=== PATIENT | male | born 1985 | race Caucasian/White ===

== ENCOUNTER 2016-12-29 10:40 | Inpatient (IN) | payer OTHER ==
[~2016-12-29] VITALS: Ht 175.2 cm; Wt 92.5 kg
--- NOTE | ~2016-12-29 | ST ---
[place], [place] EXERCISE STRESS TEST REPORT NAME: TRICIA BAR UNIT #: [id number] ROOM: 529 DOCTOR: MONA MACIEL MD BIRTHDATE: [birth year] DOS: 12/30/2016 EXERCISE STRESS TEST REPORT INDICATIONS: Chest pain. The patient has diabetes and also smokes. PERFORMANCE PROTOCOL: Agustin protocol followed. Duration of the exercise was 12 minutes 50 seconds. Maximum heart rate achieved was 85%. Stage reached was stage 3. Total METS achieved were 10 METS. Pre-exercise heart rate was 62, blood pressure 104/78. Peak exercise heart rate was 131 and blood pressure is 140/74. EKG RESPONSE: Baseline EKG, normal sinus rhythm. Stress EKG, no ST changes noted. CLINICAL RESPONSE: The patient did well. No chest pain or shortness of breath. INTERPRETATION: 1. Negative exercise stress test. 2. Wait for Cardiolite images for full report. MONA MACIEL MD CM:STRESS:EXERCISE STRESS TEST REPORT [id number] MONA MACIEL MD
[~2016-12-29 10:40] MED LIST: 70/30 INSULIN SC; AMOXICILLIN500 MG PO; AMOXIL500 MG PO; ASPIRIN81 M1 PO; AUGMENTIN 875 M1 TAB PO; CEPHALEXIN500 MG PO; CLARITIN10 MG PO; CLEOCIN HCL300 MG PO; FLONASE 0.05% 121 EA NAS; GLUCOPHAGE1000 MG PO; HUMALOG100 U/ML SC; IBU800 MG PO; LANTUS100 U/ML SC; LEVEMIR100 U/ML SC; MOTRIN800 MG PO; NAPROSYN500 MG PO; NORCO 325 MG-51 TAB PO; NOVOLIN 70/30 710 ML SC; PERCOCET 325 MG1 TA5 PO; PRAVACHOL40 MG PO; PRILOSEC20 MG PO; ZITHROMAX250 MG PO
[2016-12-29 10:46] VITALS: BP 129/77
[2016-12-29] MEDS ORDERED: LORATADINE-D 11 EACH PO (10:46)
[2016-12-29] MEDS ORDERED: BENZONATATE100 M1 PO (10:46)
[2016-12-29] MEDS ORDERED: PRAVASTATIN SOD20 MG PO (10:47)
[2016-12-29] MEDS ORDERED: OMEPRAZOLE D/R20 MG PO (10:47)
[2016-12-29] MEDS ORDERED: LISINOPRIL5 MG PO (10:47)
[2016-12-29] MEDS ORDERED: CITALOPRAM HYDR40 MG PO (10:47)
[2016-12-29] MEDS ORDERED: ASPIR LOW81 MG PO (10:47)
[2016-12-29] MEDS ORDERED: TRAZODONE50 MG PO (10:47)
[2016-12-29] MEDS ORDERED: VENLAFAXINE HYD75 M3 PO (10:48)
[2016-12-29] MEDS ORDERED: LANTUS SOLOS100 U/M1 SC (10:48)
[2016-12-29 11:10] LABS: BASO # 0.1 10*3/uL (0.0-0.1); BASO % 0.6 % (0.0-1.0); EOS # 0.3 10*3/uL (0.0-0.4); EOS % 3.4 % (1.0-4.0); HEMATOCRIT 41.7 % (42.0-52.0); HEMOGLOBIN 14.1 g/dl (14.0-18.0); LYMPH # 1.9 10*3/uL (1.3-4.4); LYMPH % 21.9 % (27.0-41.0); MEAN CELL VOLUME 88.3 fl (80.0-94.0); MEAN CORPUSCULAR HGB 29.9 pg (27.0-31.0); MEAN CORPUSCULAR HGB CONC 33.8 g/dl (33.0-37.0); MEAN PLATELET VOLUME 9.3 fl (9.6-12.3); MONO # 0.7 10*3/uL (0.1-1.0); MONO % 7.6 % (3.0-9.0); NEUT # 5.7 10*3/uL (2.3-7.9); NEUT % 66.2 % (47.0-73.0); PLATELET COUNT AUTOMATED 251 10*3/uL (130-400); RED BLOOD COUNT 4.72 10*6/uL (4.50-5.90); RED CELL DISTRI WIDTH 12.4 % (0-14.5); WHITE BLOOD COUNT 8.6 10*3/uL (4.8-10.8)
[2016-12-29 11:15] VITALS: BP 128/71
[2016-12-29 11:19] LABS: PROTHROMBIN TIME 10.7 SECONDS (9.0-12.4)
[2016-12-29 11:25] LABS: ALBUMIN 3.4 gm/dl (3.1-4.5); ALKALINE PHOSPHATASE 92 U/L (45-117); BILIRUBIN, TOTAL 0.7 mg/dl (0.2-1.0); BUN 13 mg/dl (7-24); CARBON DIOXIDE 25 mmol/L (21-32); CHLORIDE 102 mmol/L (98-107); CKMB 2.8 ng/ml (0.5-3.6); CPK 305 U/L (39-308); EST GLOM FILT AFRICAN AMERICAN > 60 ml/min; GLUCOSE 336 mg/dL (65-99); POTASSIUM 4.1 mmol/L (3.5-5.1); SGOT/AST 23 IU/L (3-35); SGPT/ALT 30 U/L (12-78); SODIUM 140 mmol/L (136-145); TOTAL PROTEIN 6.8 gm/dL (6.4-8.2)
[2016-12-29 11:26] VITALS: BP 138/79
[2016-12-29 11:37] LABS: C-REACTIVE PROTEIN < 0.29 MG/DL (0-0.3); TROPONIN I < 0.015 ng/ml (<0.045)
[2016-12-29 13:00] VITALS: BP 132/69
[2016-12-29 13:07] LABS: LA>2 REFLEX 2 HR DRAW NOW
[2016-12-29] MEDS ORDERED: EFFEXOR XR75 M1 PO (13:15)
[2016-12-29 13:32] LABS: HEMOGLOBIN A1c 8.3 % (4.8-5.6)
[2016-12-29 13:41] LABS: LA>2 RFLX FOLLOW UP AT 2 HRS 2.7 mmol/L (0.4-2.0)
[2016-12-29] MEDS ORDERED: HUMALOG100 U/ML SC (13:52)
[2016-12-29 15:19] LABS: LA>2 REFLEX 4 HR DRAW NOW
[2016-12-29 16:00] VITALS: BP 136/79
[2016-12-29 17:17] LABS: CKMB 2.1 ng/ml (0.5-3.6); CPK 240 U/L (39-308); LDH 147 U/L (87-241)
[2016-12-29 17:18] LABS: TROPONIN I < 0.015 ng/ml (<0.045)
[2016-12-29 20:00] VITALS: BP 154/71
[2016-12-29 23:30] LABS: CKMB 1.9 ng/ml (0.5-3.6); CPK 204 U/L (39-308); LDH 146 U/L (87-241)
[2016-12-29 23:31] LABS: TROPONIN I < 0.015 ng/ml (<0.045)
[2016-12-30] VITALS: BP 118/72
[2016-12-30 06:19] LABS: CHOLESTEROL 135 mg/dL (<200); HDL CHOLESTEROL 65 mg/dl (40-60); LDL CHOLESTEROL 21 mg/dL (9-159); TRIGLYCERIDES 243 mg/dl (<150); VLDL CHOLESTEROL 49 mg/dL (6-40)
[2016-12-30 08:00] VITALS: BP 116/65
[2016-12-30 08:49] LABS: BILIRUBIN NEGATIVE (NEGATIVE); BLOOD NEGATIVE (NEGATIVE); CLARITY CLEAR (CLEAR); COLOR YELLOW (YELLOW); GLUCOSE 1+ (NEGATIVE); KETONE NEGATIVE (NEGATIVE); LEUKO ESTERASE NEGATIVE (NEGATIVE); NITRITE NEGATIVE (NEGATIVE); PH 5.5 (5.0-9.0); PROTEIN NEGATIVE (NEGATIVE); UROBILINOGEN 0.2 E.U./dl (0.2-1.0)
[2016-12-30 09:57] LABS: BACTERIA TRACE; MUCOUS 2+; RBC 0-2 rbc/hpf (0-2)
[2016-12-30 12:00] VITALS: BP 114/66
[2016-12-30 16:00] VITALS: BP 113/68
[2016-12-30 20:00] VITALS: BP 129/76
[2016-12-31] VITALS: BP 121/60
[2016-12-31 08:00] VITALS: BP 100/61
[2016-12-31 12:00] VITALS: BP 140/68
[2016-12-31] MEDS ORDERED: LEVEMIR10 ML SQ (16:10)
== END 2016-12-31 16:29 | disposition home or self-care (01) | DRG 313 ==
LOC: ED 10:40 → EDHOLD 12:08 → 5E 12:16
PROVIDERS: Emergency Medicine; Internal Medicine
DX: R07.9 Chest pain, unspecified (principal); E87.2 Acidosis; E11.649 Type 2 diabetes mellitus with hypoglycemia without coma; E11.65 Type 2 diabetes mellitus with hyperglycemia; E78.1 Pure hyperglyceridemia; F17.210 Nicotine dependence, cigarettes, uncomplicated; Z82.49 Family history of ischemic heart disease and other diseases of the circulatory system; Z80.9 Family history of malignant neoplasm, unspecified; Z79.4 Long term (current) use of insulin; Z79.899 Other long term (current) drug therapy

== ENCOUNTER 2017-01-27 11:54 | Emergency (ER) | payer OTHER ==
[~2017-01-27] VITALS: Ht 175.2 cm; Wt 97.5 kg
[~2017-01-27 11:54] MED LIST changes: +ASPIR LOW81 MG PO; +BENZONATATE100 M1 PO; +CITALOPRAM HYDR40 MG PO; +EFFEXOR XR75 M1 PO; +LANTUS SOLOS100 U/M1 SC; +LEVEMIR10 ML SQ; +LISINOPRIL5 MG PO; +LORATADINE-D 11 EACH PO; +OMEPRAZOLE D/R20 MG PO; +PRAVASTATIN SOD20 MG PO; +TRAZODONE50 MG PO; +VENLAFAXINE HYD75 M3 PO
[2017-01-27 12:11] VITALS: BP 134/69
[2017-01-27] MEDS ORDERED: ASPIR LOW81 MG PO (12:13)
[2017-01-27] MEDS ORDERED: PRAVASTATIN SOD20 MG PO (12:13)
[2017-01-27] MEDS ORDERED: LISINOPRIL5 MG PO (12:13)
[2017-01-27 12:50] LABS: BASO # 0.1 10*3/uL (0.0-0.1); BASO % 0.4 % (0.0-1.0); EOS # 0.1 10*3/uL (0.0-0.4); EOS % 1.1 % (1.0-4.0); HEMATOCRIT 40.5 % (42.0-52.0); HEMOGLOBIN 13.8 g/dl (14.0-18.0); IG # 0.1 10*3/uL (0.0-0.1); LYMPH # 1.8 10*3/uL (1.3-4.4); LYMPH % 14.6 % (27.0-41.0); MEAN CELL VOLUME 87.1 fl (80.0-94.0); MEAN CORPUSCULAR HGB 29.7 pg (27.0-31.0); MEAN CORPUSCULAR HGB CONC 34.1 g/dl (33.0-37.0); MONO # 0.6 10*3/uL (0.1-1.0); MONO % 4.9 % (3.0-9.0); NEUT # 9.7 10*3/uL (2.3-7.9); NEUT % 78.5 % (47.0-73.0); PLATELET COUNT AUTOMATED 217 10*3/uL (130-400); RED BLOOD COUNT 4.65 10*6/uL (4.50-5.90); RED CELL DISTRI WIDTH 12.1 % (0-14.5); WHITE BLOOD COUNT 12.4 10*3/uL (4.8-10.8)
[2017-01-27 13:07] LABS: ALBUMIN 3.4 gm/dl (3.1-4.5); ALKALINE PHOSPHATASE 93 U/L (45-117); BILIRUBIN, TOTAL 0.3 mg/dl (0.2-1.0); BUN 16 mg/dl (7-24); CARBON DIOXIDE 28 mmol/L (21-32); CHLORIDE 102 mmol/L (98-107); EST GLOM FILT AFRICAN AMERICAN > 60 ml/min; GLUCOSE 189 mg/dL (65-99); POTASSIUM 4.1 mmol/L (3.5-5.1); SGOT/AST 17 IU/L (3-35); SGPT/ALT 22 U/L (12-78); SODIUM 140 mmol/L (136-145); TOTAL PROTEIN 6.7 gm/dL (6.4-8.2)
[2017-01-27] MEDS ORDERED: ZOFRAN ODT4 MG SL (13:44)
== END 2017-01-27 14:28 | disposition home or self-care (01) ==
LOC: ED 11:54
PROVIDERS: Registered Nurse
DX: K52.9 Noninfective gastroenteritis and colitis, unspecified (principal); F17.200 Nicotine dependence, unspecified, uncomplicated; Z79.82 Long term (current) use of aspirin; Z79.899 Other long term (current) drug therapy

== ENCOUNTER 2017-11-29 09:59 | Emergency (ER) | payer OTHER ==
[~2017-11-29] VITALS: Ht 175.2 cm; Wt 106.6 kg
[~2017-11-29 09:59] MED LIST changes: +ZOFRAN ODT4 MG SL
[2017-11-29 10:28] LABS: BASO # 0.1 10*3/uL (0.0-0.1); BASO % 0.6 % (0.0-1.0); EOS # 0.3 10*3/uL (0.0-0.4); EOS % 3.2 % (1.0-4.0); HEMATOCRIT 40.9 % (42.0-52.0); LYMPH # 1.6 10*3/uL (1.3-4.4); LYMPH % 15.9 % (27.0-41.0); MEAN CELL VOLUME 85.7 fl (80.0-94.0); MEAN CORPUSCULAR HGB 29.4 pg (27.0-31.0); MEAN CORPUSCULAR HGB CONC 34.2 g/dl (33.0-37.0); MEAN PLATELET VOLUME 9.4 fl (9.6-12.3); MONO # 0.7 10*3/uL (0.1-1.0); MONO % 6.4 % (3.0-9.0); NEUT # 7.5 10*3/uL (2.3-7.9); NEUT % 73.5 % (47.0-73.0); PLATELET COUNT AUTOMATED 198 10*3/uL (130-400); RED BLOOD COUNT 4.77 10*6/uL (4.50-5.90); RED CELL DISTRI WIDTH 12.2 % (0-14.5); WHITE BLOOD COUNT 10.2 10*3/uL (4.8-10.8)
[2017-11-29] MEDS ORDERED: ZOFRAN4 MG PO (10:43)
[2017-11-29 10:44] LABS: ALBUMIN 3.2 gm/dl (3.1-4.5); ALKALINE PHOSPHATASE 88 U/L (45-117); BUN 11 mg/dl (7-24); CHLORIDE 102 mmol/L (98-107); CREATININE 1.02 mg/dL (0.70-1.30); POTASSIUM 4.3 mmol/L (3.5-5.1); SGOT/AST 14 IU/L (3-35); SGPT/ALT 24 U/L (12-78); SODIUM 138 mmol/L (136-145); TOTAL PROTEIN 6.5 gm/dL (6.4-8.2)
[2017-11-29 11:34] VITALS: BP 108/48
== END 2017-11-29 11:46 | disposition home or self-care (01) ==
LOC: ED 09:59
PROVIDERS: Nurse Practitioner Family
DX: B34.9 Viral infection, unspecified (principal); R03.0 Elevated blood-pressure reading, without diagnosis of hypertension; F17.200 Nicotine dependence, unspecified, uncomplicated; E11.65 Type 2 diabetes mellitus with hyperglycemia; Z79.4 Long term (current) use of insulin; Z79.82 Long term (current) use of aspirin

== ENCOUNTER 2018-05-04 22:54 | Emergency (ER) | payer OTHER ==
[~2018-05-04] VITALS: Ht 175.2 cm; Wt 104.3 kg
[~2018-05-04 22:54] MED LIST changes: +ZOFRAN4 MG PO
[2018-05-04 22:55] VITALS: BP 131/78
[2018-05-04] MEDS ORDERED: FLONASE ALLERG9.9 ML NAS (23:14)
[2018-05-04] MEDS ORDERED: ALLEGRA-D 24 H1 EACH PO (23:14)
[2018-05-04] MEDS ORDERED: TOBRAMYCIN 5 ML5 M2 OPH (23:14)
== END 2018-05-04 23:28 | disposition home or self-care (01) ==
LOC: ED 22:54
DX: H10.9 Unspecified conjunctivitis (principal); F17.200 Nicotine dependence, unspecified, uncomplicated; Z79.82 Long term (current) use of aspirin; Z79.899 Other long term (current) drug therapy

== ENCOUNTER 2018-06-30 13:23 | Inpatient (IN) | payer OTHER ==
[~2018-06-30] VITALS: Ht 175.2 cm; Wt 107.5 kg
--- NOTE | ~2018-06-30 | EKG ---
[place], [place] ELECTROCARDIOGRAM REPORT NAME: TRICIA BAR UNIT #: [id number] ROOM: 403 DOCTOR: INÉS DRAFT REPORT BIRTHDATE: [birth year] [facility] Test Date: 2018-06-30 Test Time: 14:16:29 Pat Name: TRICIA BAR Department: Room: 403 Gender: M Anesthesiologist And Critical Care: Emiliana Carrasquillo : 1985 Requested By: JAIME QUINTERO PA-C Order Number: [id number] Reading MD: Eder Mendoza MD Measurements Intervals [place] Rate: 93 P: 30 MN: 155 QRS: -17 QRSD: 86 T: 34 QT: 337 QTc: 420 Interpretive Statements Sinus rhythm Borderline left axis deviation Electronically Signed On 07-04-2018 9:05:13 PDT by Eder Mendoza MD CM:EKGRPT:ELECTROCARDIOGRAM REPORT [id number] JAIME QUINTERO PA-C EPIPHANY DRAFT REPORT JAIME QUINTERO PA-C
--- NOTE | ~2018-06-30 | CON ---
[place], [place] REPORT OF CONSULTATION NAME: TRICIA BAR [facility] #: [id number] UNIT #: [id number] ROOM: 403 DOCTOR: CORTEZ KNOX MD BIRTHDATE: [birth year] DOS: 07/01/2018 HISTORY OF PRESENT ILLNESS: This is a 32-year-old -[place] man with a history of poorly controlled diabetes mellitus over the years, essential hypertension, hyperlipidemia, but without any heart attack, heart failure, stroke, cancer, COPD or any kidney problem. He smokes 1-1/2 to 2 packs of cigarettes per day. His father was 41 when he from a heart attack. He was admitted to the hospital because of on and off chest pain. He has had this pain for quite a while. A stress test last year demonstrated inferior ischemia. The pain is sharp, occasionally pressure-like. It lasts for a few minutes and can occur with exertion or at rest. There is no accompanying sweating, nausea or palpitation, dizziness or loss of consciousness. He has not had any PND, orthopnea, or swelling of the lower extremities. HOME MEDICATIONS: Gabapentin, insulin, sildenafil and Effexor XR. He is not on beta-cristiano or statin drug. PHYSICAL EXAMINATION: GENERAL: The patient who is moderately obese. He is pleasant, alert. His complexion is fine. There is no anemia, thyromegaly, finger clubbing. He is not cyanotic, not jaundiced. VITAL SIGNS: Pulse is 64 and regular, blood pressure 126/66. NECK: Normal JVP. AJR is negative. There is no carotid bruit. HEART: There is no cardiomegaly, no murmurs are present. Auscultation reveals no murmurs or rubs. He has excellent pedal pulses. EXTREMITIES: There is no edema in the lower extremity. LUNGS: Clear to percussion and auscultation with good breath sounds. ABDOMEN: Supple, nontender without bruit or pulsatile mass. LABORATORY DATA: ECG showed normal sinus rhythm with normal pattern. Troponin levels were also normal. Total triglyceride 489, total cholesterol 144 and HDL 53. A Lexiscan Cardiolite study was performed this morning. It demonstrated a normal LV systolic function with dilated left ventricle cavity and anterior wall, inferior and apical lateral wall and apical ischemia suggesting multivessel coronary artery disease. IMPRESSION: This patient with chest pain has positive stress test with at least 2-vessel involvement. I think this is probably two positive stress tests considering that this patient has all five major risk factors for coronary artery disease. I discussed this with the resident and also with the patient and the need for a diagnostic heart catheterization. I pointed out that transradial approach is not easier and there is a small risk of bleeding and damage to the vessel, myocardial infarction and rare risk of . He understands and would like to proceed; however, he wants to go home, because it is Wednesday today. [place], [place] REPORT OF CONSULTATION NAME: TRICIA BAR UNIT #: [id number] ROOM: 403 DOCTOR: CORTEZ KNOX MD BIRTHDATE: [birth year] The left heart catheterization will be scheduled as an outpatient. He will be discharged home on carvedilol 6.25 mg b.i.d. CORTEZ KNOX MD CM:CONSTR:REPORT OF CONSULTATION 1613 08/01/18 0813 interface
--- NOTE | ~2018-06-30 | EKG ---
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
--- NOTE | ~2018-06-30 | EKG ---
[place], [place] ELECTROCARDIOGRAM REPORT NAME: TRICIA BAR UNIT #: [id number] ROOM: 403 DOCTOR: INÉS DRAFT REPORT BIRTHDATE: [birth year] [facility] Test Date: 2018-06-30 Test Time: 20:02:20 Pat Name: TRICIA BAR Department: Room: 403 Gender: M Safety And Occupational Health Manager: Ari Walker : 1985 Requested By: JAIME QUINTERO PA-C Order Number: [id number] Reading MD: Eder Mendoza MD Measurements Intervals [place] Rate: 70 P: 37 [place]: 155 QRS: 8 QRSD: 82 T: 42 QT: 371 QTc: 401 Interpretive Statements Sinus rhythm ST elev, probable normal early repol pattern Electronically Signed On 07-04-2018 9:07:21 PDT by Eder Mendoza MD CM:EKGRPT:ELECTROCARDIOGRAM REPORT 01 6 JAIME QUINTERO PA-C EPIPHANY DRAFT REPORT JAIME QUINTERO PA-C
[~2018-06-30 13:23] MED LIST changes: +ALLEGRA-D 24 H1 EACH PO; +FLONASE ALLERG9.9 ML NAS; +TOBRAMYCIN 5 ML5 M2 OPH
[2018-06-30 13:24] VITALS: BP 133/109
[2018-06-30] MEDS ORDERED: HUMULIN 70/30 703 M1 SQ (13:28)
[2018-06-30] MEDS ORDERED: HUMALOG100 UNIT/2 SQ (13:29)
[2018-06-30] MEDS ORDERED: NEURONTIN600 MG PO (13:29)
[2018-06-30] MEDS ORDERED: EFFEXOR-XR150 MG PO (13:30)
[2018-06-30 14:15] VITALS: BP 120/74
[2018-06-30 14:29] LABS: BASO # 0.1 10*3/uL (0.0-0.1); BASO % 0.6 % (0.0-1.0); EOS # 0.2 10*3/uL (0.0-0.4); EOS % 2.4 % (1.0-4.0); HEMATOCRIT 41.7 % (42.0-52.0); HEMOGLOBIN 14.1 g/dl (14.0-18.0); LYMPH # 1.2 10*3/uL (1.3-4.4); LYMPH % 13.8 % (27.0-41.0); MEAN CELL VOLUME 88.5 fl (80.0-94.0); MEAN CORPUSCULAR HGB 29.9 pg (27.0-31.0); MEAN CORPUSCULAR HGB CONC 33.8 g/dl (33.0-37.0); MEAN PLATELET VOLUME 9.5 fl (9.6-12.3); MONO # 0.6 10*3/uL (0.1-1.0); MONO % 6.4 % (3.0-9.0); NEUT # 6.9 10*3/uL (2.3-7.9); NEUT % 76.5 % (47.0-73.0); PLATELET COUNT AUTOMATED 199 10*3/uL (130-400); RED BLOOD COUNT 4.71 10*6/uL (4.50-5.90); RED CELL DISTRI WIDTH 11.9 % (0-14.5)
[2018-06-30 14:53] LABS: ALBUMIN 3.1 gm/dl (3.1-4.5); ALKALINE PHOSPHATASE 81 U/L (45-117); BUN 18 mg/dl (7-24); CHLORIDE 102 mmol/L (98-107); CREATININE 1.32 mg/dL (0.70-1.30); POTASSIUM 3.7 mmol/L (3.5-5.1); SGOT/AST 10 IU/L (3-35); SGPT/ALT 25 U/L (12-78); SODIUM 136 mmol/L (136-145); TOTAL PROTEIN 6.2 gm/dL (6.4-8.2)
[2018-06-30 14:54] LABS: ABG BASE EXCESS -2.8 mmol/L (-2.0-2.0); ABG HCO3 20.8 mmol/l (22-26); ABG O2 SATURATION 97.6 % (95-97); ARTERIAL BLOOD GAS PCO2 34.6 mmHg (35-45); ARTERIAL BLOOD GAS PH 7.397 (7.35-7.45); ARTERIAL BLOOD GAS PO2 95.5 mmHg (80-90)
[2018-06-30 14:57] LABS: BILIRUBIN NEGATIVE (NEGATIVE); BLOOD NEGATIVE (NEGATIVE); CLARITY CLEAR (CLEAR); COLOR YELLOW (YELLOW); GLUCOSE 3+ (NEGATIVE); KETONE NEGATIVE (NEGATIVE); LEUKO ESTERASE NEGATIVE (NEGATIVE); NITRITE NEGATIVE (NEGATIVE); SPECIFIC GRAVITY <= 1.005 (1.005-1.030); UROBILINOGEN 0.2 E.U./dl (0.2-1.0)
[2018-06-30 15:11] LABS: EPITHELIAL CELLS 0-2; RBC 0-2 rbc/hpf (0-2); WBC 0-2 wbc/hpf (0-5)
[2018-06-30 15:31] VITALS: BP 122/68
[2018-06-30 17:00] VITALS: BP 118/73; BP 123/71
[2018-06-30 17:16] VITALS: BP 118/73
[2018-06-30] MEDS ORDERED: SILDENAFIL20 M1 PO (17:49)
[2018-06-30 20:00] VITALS: BP 124/65
[2018-07-01] VITALS: BP 122/78
[2018-07-01 06:01] LABS: BASO # 0.1 10*3/uL (0.0-0.1); BASO % 0.8 % (0.0-1.0); EOS # 0.3 10*3/uL (0.0-0.4); EOS % 4.4 % (1.0-4.0); HEMATOCRIT 40.6 % (42.0-52.0); HEMOGLOBIN 13.6 g/dl (14.0-18.0); LYMPH # 1.7 10*3/uL (1.3-4.4); LYMPH % 23.9 % (27.0-41.0); MEAN CORPUSCULAR HGB 30.2 pg (27.0-31.0); MEAN CORPUSCULAR HGB CONC 33.5 g/dl (33.0-37.0); MEAN PLATELET VOLUME 9.7 fl (9.6-12.3); MONO # 0.7 10*3/uL (0.1-1.0); MONO % 10.1 % (3.0-9.0); NEUT # 4.4 10*3/uL (2.3-7.9); NEUT % 60.5 % (47.0-73.0); PLATELET COUNT AUTOMATED 210 10*3/uL (130-400); RED BLOOD COUNT 4.51 10*6/uL (4.50-5.90); RED CELL DISTRI WIDTH 12.1 % (0-14.5); WHITE BLOOD COUNT 7.3 10*3/uL (4.8-10.8)
[2018-07-01 06:27] LABS: BUN 13 mg/dl (7-24); CHLORIDE 107 mmol/L (98-107); CHOLESTEROL 144 mg/dL (<200); CREATININE 0.74 mg/dL (0.70-1.30); PHOSPHOROUS 2.8 mg/dL (2.5-4.9); POTASSIUM 3.8 mmol/L (3.5-5.1); SODIUM 141 mmol/L (136-145); TRIGLYCERIDES 489 mg/dl (<150)
[2018-07-01 06:35] LABS: FREE T4 0.82 ng/dl (0.76-1.46); HDL CHOLESTEROL 53 mg/dl (40-60)
[2018-07-01 07:39] LABS: VITAMIN D, 25-HYDROXY 18.8 ng/mL (30-100)
[2018-07-01 08:00] VITALS: BP 133/83
[2018-07-01 12:00] VITALS: BP 126/66
[2018-07-01 16:00] VITALS: BP 124/74
[2018-07-01] MEDS ORDERED: VITAMIN D31000 UNI1 PO (16:12)
[2018-07-01] MEDS ORDERED: COREG6.25 MG PO (16:12)
== END 2018-07-01 18:26 | disposition home or self-care (01) | DRG 637 ==
LOC: ED 13:23 → 4E 15:50 → EDHOLD 15:50 → 4E 16:35
PROVIDERS: Physician Assistant; Student in an Organized Health Care Education/Training Program
PROC: 3E033HZ Introduction of Radioactive Substance into Peripheral Vein, Percutaneous Approach (ICD-10-PCS; principal; 2018-07-01)
PROC: 4A02XM4 Measurement of Cardiac Total Activity, External Approach (ICD-10-PCS; principal; 2018-07-01)
DX: E11.65 Type 2 diabetes mellitus with hyperglycemia (principal); N17.0 Acute kidney failure with tubular necrosis; E87.2 Acidosis; E44.0 Moderate protein-calorie malnutrition; I25.119 Atherosclerotic heart disease of native coronary artery with unspecified angina pectoris; R00.0 Tachycardia, unspecified; R81 Glycosuria; E78.5 Hyperlipidemia, unspecified; F17.210 Nicotine dependence, cigarettes, uncomplicated; E55.9 Vitamin D deficiency, unspecified; D72.810 Lymphocytopenia; I10 Essential (primary) hypertension; E78.1 Pure hyperglyceridemia; Z71.6 Tobacco abuse counseling; Z79.4 Long term (current) use of insulin; Z91.14 Patient's other noncompliance with medication regimen; Z79.82 Long term (current) use of aspirin; Z83.3 Family history of diabetes mellitus; Z82.49 Family history of ischemic heart disease and other diseases of the circulatory system; Z80.6 Family history of leukemia; Z79.899 Other long term (current) drug therapy; Z68.35 Body mass index [BMI] 35.0-35.9, adult

== ENCOUNTER → 2019-04-06 | Outpatient (CLI) | payer OTHER ==
[~2019-04-06] MED LIST changes: +COREG6.25 MG PO; +EFFEXOR-XR150 MG PO; +HUMALOG100 UNIT/2 SQ; +HUMULIN 70/30 703 M1 SQ; +NEURONTIN600 MG PO; +SILDENAFIL20 M1 PO; +VITAMIN D31000 UNI1 PO
== END | disposition home or self-care (01) ==
LOC: RESCLI 01:18
DX: I10 Essential (primary) hypertension (principal); E03.9 Hypothyroidism, unspecified; F17.200 Nicotine dependence, unspecified, uncomplicated; Z71.89 Other specified counseling; Z79.899 Other long term (current) drug therapy; Z88.8 Allergy status to other drugs, medicaments and biological substances

== ENCOUNTER → 2019-09-14 | Outpatient (CLI) | payer SELFPAY | END | disposition home or self-care (01) | LOC: RESCLI 15:16 | DX: E10.9 Type 1 diabetes mellitus without complications (principal); E78.5 Hyperlipidemia, unspecified; E66.9 Obesity, unspecified; Z72.0 Tobacco use; Z71.6 Tobacco abuse counseling; Z79.899 Other long term (current) drug therapy; Z88.8 Allergy status to other drugs, medicaments and biological substances ==

== ENCOUNTER 2020-04-04 11:52 | Observation (INO) | payer MEDICAID ==
[~2020-04-04] VITALS: Ht 175.2 cm; Wt 93.9 kg
[2020-04-04 11:58] VITALS: BP 152/80
[2020-04-04 12:50] LABS: BASO % 0.4 % (0.0-1.0); EOS # 0.1 10*3/uL (0.0-0.4); EOS % 0.9 % (1.0-4.0); HEMATOCRIT 44.1 % (42.0-52.0); LYMPH # 0.9 10*3/uL (1.3-4.4); LYMPH % 8.1 % (27.0-41.0); MEAN CELL VOLUME 85.3 fl (80.0-94.0); MEAN CORPUSCULAR HGB 29.2 pg (27.0-31.0); MEAN CORPUSCULAR HGB CONC 34.2 g/dl (33.0-37.0); MEAN PLATELET VOLUME 9.5 fl (9.6-12.3); MONO # 0.5 10*3/uL (0.1-1.0); MONO % 4.3 % (3.0-9.0); NEUT # 9.8 10*3/uL (2.3-7.9); NEUT % 85.8 % (47.0-73.0); PLATELET COUNT AUTOMATED 197 10*3/uL (130-400); RED BLOOD COUNT 5.17 10*6/uL (4.50-5.90); RED CELL DISTRI WIDTH 11.9 % (0-14.5); WHITE BLOOD COUNT 11.4 10*3/uL (4.8-10.8)
[2020-04-04 13:06] LABS: ALBUMIN 3.3 gm/dl (3.1-4.5); ALKALINE PHOSPHATASE 84 U/L (45-117); BUN 9 mg/dl (7-24); CHLORIDE 107 mmol/L (98-107); CREATININE 0.83 mg/dL (0.70-1.30); LIPASE 54 U/L (73-393); POTASSIUM 3.5 mmol/L (3.5-5.1); SGOT/AST 16 IU/L (3-35); SGPT/ALT 22 U/L (12-78); SODIUM 137 mmol/L (136-145); TOTAL PROTEIN 6.7 gm/dL (6.4-8.2)
[2020-04-04 13:14] LABS: ACETAMINOPHEN (TYLENOL) < 5.0 ug/ml (10-30); ETHYL ALCOHOL < 3.0 mg/dl (<3); TROPONIN I < 0.015 ng/ml (<0.045)
[2020-04-04 13:51] LABS: CLARITY SL CLOUDY (CLEAR); COLOR YELLOW (YELLOW)
[2020-04-04 13:52] LABS: BILIRUBIN NEGATIVE (NEGATIVE); BLOOD 1+ (NEGATIVE); GLUCOSE TRACE (NEGATIVE); KETONE NEGATIVE (NEGATIVE); LEUKO ESTERASE NEGATIVE (NEGATIVE); NITRITE NEGATIVE (NEGATIVE); SPECIFIC GRAVITY 1.025 (1.005-1.030); UROBILINOGEN 0.2 E.U./dl (0.2-1.0)
[2020-04-04 14:15] LABS: URINE AMPHETAMINES < 1000 (1000ng/ml); URINE BARBITURATES < 200 (200ng/ml); URINE BENZODIAZEPINES < 200 (200ng/ml); URINE CANNABINOIDS (THC) > 50 (50ng/ml); URINE COCAINE < 300 (300ng/ml); URINE METHADONE < 300 (300ng/ml); URINE OPIATES < 300 (300ng/ml)
[2020-04-04 14:18] LABS: URINE PHENCYCLIDINE < 25 (25ng/ml)
[2020-04-04 14:59] VITALS: BP 135/70
[2020-04-04 16:10] VITALS: BP 136/78
[2020-04-04] MEDS ORDERED: LIPITOR10 MG PO (17:42)
[2020-04-04] MEDS ORDERED: BASAG SOL SC (17:43)
[2020-04-04] MEDS ORDERED: NOVOLOG FL100 UNIT/2 SQ (17:43)
[2020-04-04 20:00] VITALS: BP 143/60
[2020-04-05] VITALS: BP 137/63
[2020-04-05 06:30] LABS: BASO # 0.1 10*3/uL (0.0-0.1); BASO % 0.6 % (0.0-1.0); EOS # 0.5 10*3/uL (0.0-0.4); EOS % 5.5 % (1.0-4.0); HEMATOCRIT 39.9 % (42.0-52.0); LYMPH # 2.3 10*3/uL (1.3-4.4); LYMPH % 27.5 % (27.0-41.0); MEAN CELL VOLUME 86.6 fl (80.0-94.0); MEAN CORPUSCULAR HGB 29.3 pg (27.0-31.0); MEAN CORPUSCULAR HGB CONC 33.8 g/dl (33.0-37.0); MEAN PLATELET VOLUME 9.4 fl (9.6-12.3); MONO # 0.8 10*3/uL (0.1-1.0); MONO % 9.7 % (3.0-9.0); NEUT # 4.7 10*3/uL (2.3-7.9); NEUT % 56.5 % (47.0-73.0); PLATELET COUNT AUTOMATED 175 10*3/uL (130-400); RED BLOOD COUNT 4.61 10*6/uL (4.50-5.90); RED CELL DISTRI WIDTH 12.2 % (0-14.5); WHITE BLOOD COUNT 8.4 10*3/uL (4.8-10.8)
[2020-04-05 06:42] LABS: BUN 7 mg/dl (7-24); CHLORIDE 110 mmol/L (98-107); CREATININE 0.77 mg/dL (0.70-1.30); POTASSIUM 3.7 mmol/L (3.5-5.1); SODIUM 140 mmol/L (136-145)
[2020-04-05 08:00] VITALS: BP 134/86
[2020-04-05 12:00] VITALS: BP 142/79
[2020-04-05 16:00] VITALS: BP 138/78
[2020-04-05 20:00] VITALS: BP 135/78
[2020-04-06] VITALS: BP 136/92
[2020-04-06 06:17] LABS: BASO # 0.1 10*3/uL (0.0-0.1); BASO % 0.7 % (0.0-1.0); EOS # 0.5 10*3/uL (0.0-0.4); EOS % 6.1 % (1.0-4.0); HEMATOCRIT 42.9 % (42.0-52.0); LYMPH # 2.5 10*3/uL (1.3-4.4); LYMPH % 28.4 % (27.0-41.0); MEAN CELL VOLUME 86.7 fl (80.0-94.0); MEAN CORPUSCULAR HGB 29.5 pg (27.0-31.0); MEAN PLATELET VOLUME 9.7 fl (9.6-12.3); MONO # 0.7 10*3/uL (0.1-1.0); MONO % 7.8 % (3.0-9.0); NEUT % 56.7 % (47.0-73.0); PLATELET COUNT AUTOMATED 188 10*3/uL (130-400); RED BLOOD COUNT 4.95 10*6/uL (4.50-5.90); WHITE BLOOD COUNT 8.8 10*3/uL (4.8-10.8)
[2020-04-06 06:28] LABS: ALBUMIN 3.1 gm/dl (3.1-4.5); ALKALINE PHOSPHATASE 79 U/L (45-117); BUN 9 mg/dl (7-24); CHLORIDE 106 mmol/L (98-107); CREATININE 0.81 mg/dL (0.70-1.30); POTASSIUM 4.2 mmol/L (3.5-5.1); SGOT/AST 9 IU/L (3-35); SGPT/ALT 18 U/L (12-78); SODIUM 141 mmol/L (136-145); TOTAL PROTEIN 6.5 gm/dL (6.4-8.2)
[2020-04-06 08:00] VITALS: BP 107/68
[2020-04-06] MEDS ORDERED: Lantus SC (11:58)
[2020-04-06] MEDS ORDERED: LIPITOR10 MG PO (11:58)
[2020-04-06] MEDS ORDERED: Humalog SQ (11:58)
[2020-04-06] MEDS ORDERED: VITAMIN D31250 MC1 PO (11:58)
[2020-04-06 12:00] VITALS: BP 132/77
== END 2020-04-06 12:30 | disposition home or self-care (01) ==
LOC: ED 11:52 → 5E 15:03 → EDHOLD 15:03 → 5E 15:09
PROVIDERS: Emergency Medicine; Internal Medicine; Physician Assistant; ADMIT Emergency Medicine
DX: E10.649 Type 1 diabetes mellitus with hypoglycemia without coma (principal); G93.41 Metabolic encephalopathy; D72.829 Elevated white blood cell count, unspecified; F17.210 Nicotine dependence, cigarettes, uncomplicated; E10.65 Type 1 diabetes mellitus with hyperglycemia; E83.51 Hypocalcemia; I10 Essential (primary) hypertension

== ENCOUNTER 2020-05-25 11:29 | Emergency (ER) | payer OTHER ==
[~2020-05-25] VITALS: Ht 172.7 cm; Wt 93.9 kg
[~2020-05-25 11:29] MED LIST changes: +BASAG SOL SC; +Humalog SQ; +LIPITOR10 MG PO; +Lantus SC; +NOVOLOG FL100 UNIT/2 SQ; +VITAMIN D31250 MC1 PO
[2020-05-25 11:36] VITALS: BP 119/83
[2020-05-25 12:50] LABS: BILIRUBIN NEGATIVE (NEGATIVE); BLOOD 1+ (NEGATIVE); CLARITY CLEAR (CLEAR); COLOR YELLOW (YELLOW); GLUCOSE 3+ (NEGATIVE); KETONE 1+ (NEGATIVE); PH 5.5 (5.0-9.0)
[2020-05-25 12:51] LABS: LEUKO ESTERASE 1+ (NEGATIVE); NITRITE NEGATIVE (NEGATIVE)
[2020-05-25 12:57] LABS: BUN 21 mg/dl (7-24); CHLORIDE 104 mmol/L (98-107); CREATININE 1.13 mg/dL (0.70-1.30); POTASSIUM 4.3 mmol/L (3.5-5.1); SODIUM 133 mmol/L (136-145)
[2020-05-25 13:02] LABS: BACTERIA 1+; MUCOUS 1+; RBC 21-30 rbc/hpf (0-2); WBC 31-40 wbc/hpf (0-5)
[2020-05-25] MEDS ORDERED: NAPROXEN250 MG PO (13:15)
[2020-05-25] MEDS ORDERED: TYLENOL325 M1 PO (13:15)
== END 2020-05-25 13:48 | disposition home or self-care (01) ==
LOC: ED 11:29
PROVIDERS: Emergency Medicine
DX: R07.81 Pleurodynia (principal); E86.0 Dehydration; R82.4 Acetonuria; E11.9 Type 2 diabetes mellitus without complications; I10 Essential (primary) hypertension; K21.9 Gastro-esophageal reflux disease without esophagitis; F17.200 Nicotine dependence, unspecified, uncomplicated; Z79.899 Other long term (current) drug therapy

== ENCOUNTER 2020-06-29 01:56 | Emergency (ER) | payer OTHER ==
[~2020-06-29] VITALS: Ht 172.7 cm; Wt 93.9 kg
[~2020-06-29 01:56] MED LIST changes: +NAPROXEN250 MG PO; +TYLENOL325 M1 PO
[2020-06-29 04:17] VITALS: BP 143/66
[2020-06-29] MEDS ORDERED: Motrin,Rufen800 MG PO (04:33)
== END 2020-06-29 06:00 | disposition home or self-care (01) ==
LOC: ED 01:56
DX: M23.8X1 Other internal derangements of right knee (principal); Z79.899 Other long term (current) drug therapy

== ENCOUNTER → 2020-08-12 | Outpatient (CLI) | payer OTHER ==
[~2020-08-12] MED LIST changes: +Motrin,Rufen800 MG PO
[2020-08-12 10:27] LABS: ALBUMIN 3.2 gm/dl (3.1-4.5); BUN 16 mg/dl (7-24); CHLORIDE 107 mmol/L (98-107); CHOLESTEROL 208 mg/dL (<200); CREATININE 1.08 mg/dL (0.70-1.30); FREE T4 0.79 ng/dl (0.76-1.46); SODIUM 138 mmol/L (136-145)
[2020-08-12 10:35] LABS: ALKALINE PHOSPHATASE 123 U/L (45-117); HDL CHOLESTEROL 81 mg/dl (40-60); LDL CHOLESTEROL 101 mg/dL (9-159); SGOT/AST 17 IU/L (3-35); SGPT/ALT 22 U/L (12-78); TOTAL PROTEIN 7.2 gm/dL (6.4-8.2); TRIGLYCERIDES 132 mg/dl (<150); VLDL CHOLESTEROL 26 mg/dL (6-40)
[2020-08-13 10:07] LABS: CREATININE,URINE 57.5 mg/dL (Not Estab.)
== END | disposition home or self-care (01) ==
LOC: LAB 08:35
PROVIDERS: ATTEND Internal Medicine Endocrinology, Diabetes & Metabolism
DX: E10.65 Type 1 diabetes mellitus with hyperglycemia (principal); E55.9 Vitamin D deficiency, unspecified; E53.8 Deficiency of other specified B group vitamins

== ENCOUNTER 2020-10-02 01:39 | Emergency (ER) | payer OTHER ==
[~2020-10-02] VITALS: Ht 172.7 cm; Wt 95.3 kg
[2020-10-02 01:46] VITALS: BP 130/88
[2020-10-02 02:08] LABS: BASO % 0.3 % (0.0-1.0); EOS # 0.1 10*3/uL (0.0-0.4); EOS % 0.4 % (1.0-4.0); HEMATOCRIT 41.7 % (42.0-52.0); LYMPH # 1.8 10*3/uL (1.3-4.4); LYMPH % 14.9 % (27.0-41.0); MEAN CELL VOLUME 86.2 fl (80.0-94.0); MEAN CORPUSCULAR HGB 28.9 pg (27.0-31.0); MEAN CORPUSCULAR HGB CONC 33.6 g/dl (33.0-37.0); MEAN PLATELET VOLUME 8.9 fl (9.6-12.3); MONO # 0.7 10*3/uL (0.1-1.0); MONO % 5.6 % (3.0-9.0); NEUT # 9.7 10*3/uL (2.3-7.9); NEUT % 78.5 % (47.0-73.0); PLATELET COUNT AUTOMATED 242 10*3/uL (130-400); RED BLOOD COUNT 4.84 10*6/uL (4.50-5.90); RED CELL DISTRI WIDTH 11.9 % (0-14.5); WHITE BLOOD COUNT 12.3 10*3/uL (4.8-10.8)
[2020-10-02 02:23] LABS: ALBUMIN 3.4 gm/dl (3.1-4.5); ALKALINE PHOSPHATASE 131 U/L (45-117); BUN 19 mg/dl (7-24); CHLORIDE 100 mmol/L (98-107); CREATININE 1.47 mg/dL (0.70-1.30); LIPASE 66 U/L (73-393); POTASSIUM 3.5 mmol/L (3.5-5.1); SGOT/AST 16 IU/L (3-35); SGPT/ALT 36 U/L (12-78); SODIUM 135 mmol/L (136-145); TOTAL PROTEIN 6.9 gm/dL (6.4-8.2)
[2020-10-02] MEDS ORDERED: ZOFRAN4 MG PO (02:45)
== END 2020-10-02 04:06 | disposition home or self-care (01) ==
LOC: ED 01:39
PROVIDERS: Internal Medicine
DX: Z79.899 Other long term (current) drug therapy (principal); E10.65 Type 1 diabetes mellitus with hyperglycemia; E10.22 Type 1 diabetes mellitus with diabetic chronic kidney disease; I12.9 Hypertensive chronic kidney disease with stage 1 through stage 4 chronic kidney disease, or unspecified chronic kidney disease; N18.31 Chronic kidney disease, stage 3a; K21.9 Gastro-esophageal reflux disease without esophagitis; R11.2 Nausea with vomiting, unspecified

== ENCOUNTER 2021-11-16 23:23 | Emergency (ER) | payer OTHER ==
[~2021-11-16] VITALS: Ht 172.7 cm; Wt 90.7 kg
[2021-11-16 23:34] VITALS: BP 128/84
[2021-11-17] MEDS ORDERED: DIPHENHYDRAMINE50 M1 PO (01:17)
== END 2021-11-17 01:32 | disposition home or self-care (01) ==
LOC: ED 23:23
DX: R21 Rash and other nonspecific skin eruption (principal); I10 Essential (primary) hypertension; E10.9 Type 1 diabetes mellitus without complications; F17.210 Nicotine dependence, cigarettes, uncomplicated; E78.00 Pure hypercholesterolemia, unspecified

== ENCOUNTER → 2021-12-12 | Outpatient (CLI) | payer OTHER ==
[~2021-12-12] MED LIST changes: +DIPHENHYDRAMINE50 M1 PO
[2021-12-12 16:52] LABS: HEMATOCRIT 36.7 % (42.0-52.0); MEAN CELL VOLUME 85.5 fl (80.0-94.0); MEAN CORPUSCULAR HGB 28.7 pg (27.0-31.0); MEAN CORPUSCULAR HGB CONC 33.5 g/dl (33.0-37.0); PLATELET COUNT AUTOMATED 258 10*3/uL (130-400); RED BLOOD COUNT 4.29 10*6/uL (4.50-5.90); RED CELL DISTRI WIDTH 12.6 % (0-14.5); WHITE BLOOD COUNT 5.6 10*3/uL (4.8-10.8)
[2021-12-12 17:02] LABS: MANUAL DIFF REFLEX YES
[2021-12-12 17:11] LABS: ALKALINE PHOSPHATASE 124 U/L (45-117); BUN 20 mg/dl (7-24); CHLORIDE 103 mmol/L (98-107); CHOLESTEROL 196 mg/dL (<200); CREATININE 1.01 mg/dL (0.70-1.30); LDL CHOLESTEROL 96 mg/dL (9-159); POTASSIUM 4.1 mmol/L (3.5-5.1); SGOT/AST 27 IU/L (3-35); SGPT/ALT 41 U/L (12-78); SODIUM 136 mmol/L (136-145); TOTAL PROTEIN 6.7 gm/dL (6.4-8.2); TRIGLYCERIDES 261 mg/dl (<150)
[2021-12-12 17:12] LABS: FREE T4 0.79 ng/dl (0.76-1.46)
[2021-12-12 17:17] LABS: THYROID STIM HORMONE (HS) 0.855 uIU/ml (0.358-4.75)
[2021-12-12 17:22] LABS: ATYPICAL LYMPHS 9 % (0-0); TOTAL CELLS COUNTED 100 #CELLS
[2021-12-12 17:23] LABS: PLATELET SUFFICIENCY NORMAL (NORMAL)
== END | disposition home or self-care (01) ==
LOC: LAB 16:27
PROVIDERS: ATTEND Internal Medicine
DX: E11.65 Type 2 diabetes mellitus with hyperglycemia (principal); R10.9 Unspecified abdominal pain; R80.9 Proteinuria, unspecified

== ENCOUNTER → 2021-12-13 | Outpatient (CLI) | payer OTHER | END | disposition home or self-care (01) | LOC: LAB 17:40 | PROVIDERS: ATTEND Internal Medicine | DX: E11.65 Type 2 diabetes mellitus with hyperglycemia (principal); R10.9 Unspecified abdominal pain; R80.9 Proteinuria, unspecified ==

== ENCOUNTER → 2021-12-15 | Outpatient (CLI) | payer OTHER | END | disposition home or self-care (01) | LOC: LAB 17:40 | PROVIDERS: ATTEND Internal Medicine | DX: E11.65 Type 2 diabetes mellitus with hyperglycemia (principal); R10.9 Unspecified abdominal pain; R80.9 Proteinuria, unspecified ==

== ENCOUNTER → 2022-01-06 | Outpatient (CLI) | payer OTHER | END | disposition home or self-care (01) | LOC: US 07:30 | PROVIDERS: ATTEND Internal Medicine | DX: N20.0 Calculus of kidney (principal); M17.11 Unilateral primary osteoarthritis, right knee ==

== ENCOUNTER 2022-04-08 14:07 | Emergency (ER) | payer OTHER ==
[~2022-04-08] VITALS: Ht 172.7 cm; Wt 93.0 kg
[2022-04-08 14:30] VITALS: BP 128/91
[2022-04-08] MEDS ORDERED: CETIRIZINE10 MG PO (16:09)
[2022-04-08] MEDS ORDERED: BENZONATATE100 M1 PO (16:11)
== END 2022-04-08 16:14 | disposition home or self-care (01) ==
LOC: ED 14:07
DX: B34.9 Viral infection, unspecified (principal); Z20.822 Contact with and (suspected) exposure to COVID-19; Z87.891 Personal history of nicotine dependence

== ENCOUNTER 2022-09-28 02:05 | Emergency (ER) | payer OTHER ==
[~2022-09-28] VITALS: Ht 172.7 cm; Wt 86.2 kg
[~2022-09-28 02:05] MED LIST changes: +CETIRIZINE10 MG PO
[2022-09-28 04:14] LABS: BASO % 0.5 % (0.0-1.0); EOS # 0.3 10*3/uL (0.0-0.4); EOS % 3.3 % (1.0-4.0); HEMATOCRIT 38.9 % (42.0-52.0); LYMPH # 2.3 10*3/uL (1.3-4.4); LYMPH % 30.8 % (27.0-41.0); MEAN CELL VOLUME 84.4 fl (80.0-94.0); MEAN CORPUSCULAR HGB 29.1 pg (27.0-31.0); MEAN CORPUSCULAR HGB CONC 34.4 g/dl (33.0-37.0); MEAN PLATELET VOLUME 9.4 fl (9.6-12.3); MONO # 0.7 10*3/uL (0.1-1.0); MONO % 9.1 % (3.0-9.0); NEUT # 4.2 10*3/uL (2.3-7.9); PLATELET COUNT AUTOMATED 225 10*3/uL (130-400); RED BLOOD COUNT 4.61 10*6/uL (4.50-5.90); RED CELL DISTRI WIDTH 11.7 % (0-14.5); WHITE BLOOD COUNT 7.5 10*3/uL (4.8-10.8)
[2022-09-28 04:30] LABS: ALKALINE PHOSPHATASE 98 U/L (46-116); BUN 15 mg/dl (9-23); CHLORIDE 100 mmol/L (98-107); CREATININE 1.15 mg/dL (0.70-1.30); POTASSIUM 4.2 mmol/L (3.4-5.1); SGPT/ALT 16 U/L (10-49); SODIUM 135 mmol/L (136-145); TOTAL PROTEIN 5.7 gm/dL (6.0-8.0)
[2022-09-28 06:04] VITALS: BP 131/81
[2022-09-28] MEDS ORDERED: VIBRAMYCIN HYC100 MG PO (06:53)
[2022-09-28] MEDS ORDERED: TRAMADOL HCL50 MG PO (06:56)
== END 2022-09-28 07:09 | disposition home or self-care (01) ==
LOC: ED 02:05
PROVIDERS: Emergency Medicine
DX: S22.32XA Fracture of one rib, left side, initial encounter for closed fracture (principal); J40 Bronchitis, not specified as acute or chronic; R73.9 Hyperglycemia, unspecified; Z90.49 Acquired absence of other specified parts of digestive tract; F10.90 Alcohol use, unspecified, uncomplicated; F17.200 Nicotine dependence, unspecified, uncomplicated; X58.XXXA Exposure to other specified factors, initial encounter; Y93.89 Activity, other specified; Y92.89 Other specified places as the place of occurrence of the external cause; Y99.8 Other external cause status

== ENCOUNTER → 2022-11-13 | Outpatient (CLI) | payer MEDICAID ==
[~2022-11-13] MED LIST changes: +TRAMADOL HCL50 MG PO; +VIBRAMYCIN HYC100 MG PO
[2022-11-13 11:00] LABS: BILIRUBIN Negative (Negative); BLOOD Trace-Lysed (Negative); CLARITY Clear (Clear); COLOR Yellow (Yellow); GLUCOSE 3+ (Negative); KETONE Negative (Negative); LEUKO ESTERASE Negative (Negative); NITRITE Negative (Negative)
[2022-11-13 11:19] LABS: ALKALINE PHOSPHATASE 110 U/L (46-116); BUN 12 mg/dl (9-23); CHLORIDE 102 mmol/L (98-107); SGPT/ALT 17 U/L (10-49); TOTAL PROTEIN 6.7 gm/dL (6.0-8.0)
[2022-11-13 11:52] LABS: BACTERIA TRACE; EPITHELIAL CELLS 0-2; WBC 0-2 wbc/hpf (0-5)
[2022-11-14 05:06] LABS: HBSAG Negative (Negative); HEP B CORE AB, IGM Negative (Negative); HEPATITIS C ANTIBODY <0.1 (0.0-0.9)
[2022-11-14 10:07] LABS: CREATININE,URINE 107.8 mg/dL (Not Estab.)
[2022-11-16 15:06] LABS: ATYPICAL PANCA <1:20 titer (Neg:<1:20)
== END | disposition home or self-care (01) ==
LOC: LAB 10:30
PROVIDERS: Internal Medicine Nephrology; ATTEND Internal Medicine
DX: E11.65 Type 2 diabetes mellitus with hyperglycemia (principal); R07.81 Pleurodynia; R80.9 Proteinuria, unspecified

== ENCOUNTER → 2022-12-29 | Outpatient (CLI) | payer MEDICAID ==
[2022-12-29 12:43] LABS: BASO # 0.1 10*3/uL (0.0-0.1); BASO % 1.2 % (0.0-1.0); EOS # 0.2 10*3/uL (0.0-0.4); EOS % 4.4 % (1.0-4.0); HEMATOCRIT 42.9 % (42.0-52.0); LYMPH # 1.2 10*3/uL (1.3-4.4); LYMPH % 27.4 % (27.0-41.0); MEAN CELL VOLUME 84.4 fl (80.0-94.0); MEAN CORPUSCULAR HGB 29.5 pg (27.0-31.0); MEAN PLATELET VOLUME 9.6 fl (9.6-12.3); MONO # 0.6 10*3/uL (0.1-1.0); MONO % 13.1 % (3.0-9.0); NEUT # 2.3 10*3/uL (2.3-7.9); NEUT % 53.7 % (47.0-73.0); PLATELET COUNT AUTOMATED 178 10*3/uL (130-400); RED BLOOD COUNT 5.08 10*6/uL (4.50-5.90); WHITE BLOOD COUNT 4.3 10*3/uL (4.8-10.8)
[2022-12-29 13:59] LABS: ALKALINE PHOSPHATASE 108 U/L (46-116); BUN 19 mg/dl (9-23); CHLORIDE 98 mmol/L (98-107); POTASSIUM 4.4 mmol/L (3.4-5.1); SGPT/ALT 49 U/L (10-49)
== END | disposition home or self-care (01) ==
LOC: LAB 12:26
PROVIDERS: ATTEND Internal Medicine
DX: K52.9 Noninfective gastroenteritis and colitis, unspecified (principal); E10.21 Type 1 diabetes mellitus with diabetic nephropathy

== ENCOUNTER 2023-01-25 03:17 | Emergency (ER) | payer MEDICAID ==
[~2023-01-25] VITALS: Ht 172.7 cm; Wt 81.6 kg
[2023-01-25 03:25] VITALS: BP 142/88
[2023-01-25] MEDS ORDERED: ZITHROMAX250 MG PO (04:29)
[2023-01-25] MEDS ORDERED: PREDNISONE20 M1 PO (04:29)
== END 2023-01-25 04:44 | disposition home or self-care (01) ==
LOC: ED 03:17
DX: J06.9 Acute upper respiratory infection, unspecified (principal); J20.8 Acute bronchitis due to other specified organisms; E11.9 Type 2 diabetes mellitus without complications; Z79.4 Long term (current) use of insulin; I10 Essential (primary) hypertension; K21.9 Gastro-esophageal reflux disease without esophagitis; Z98.890 Other specified postprocedural states; F17.200 Nicotine dependence, unspecified, uncomplicated; Z20.822 Contact with and (suspected) exposure to COVID-19

== ENCOUNTER 2023-07-09 15:48 | Inpatient (IN) | payer MEDICAID ==
[2023-07-08 20:00] VITALS: BP 114/69
[~2023-07-09] VITALS: Ht 177.8 cm; Wt 73.7 kg
[~2023-07-09 15:48] MED LIST changes: +PREDNISONE20 M1 PO
[2023-07-09 16:05] VITALS: BP 152/77
[2023-07-09] MEDS ORDERED: ADDERALL 30 MG30 MG PO (16:17)
[2023-07-09] MEDS ORDERED: JARDIANCE25 MG PO (16:17)
[2023-07-09] MEDS ORDERED: GABAPENTIN600 MG PO (16:18)
[2023-07-09] MEDS ORDERED: ROSUVASTATIN CA10 MG PO (16:18)
[2023-07-09] MEDS ORDERED: OMEPRAZOLE MAGN20 MG PO (16:18)
[2023-07-09] MEDS ORDERED: LISINOPRIL20 MG PO (16:20)
[2023-07-09] MEDS ORDERED: INSULIN AS100 UNIT/4 SQ (16:23)
[2023-07-09 16:28] LABS: BASO # 0.1 10*3/uL (0.0-0.1); BASO % 0.8 % (0.0-1.0); EOS % 0.3 % (1.0-4.0); HEMATOCRIT 44.8 % (42.0-52.0); LYMPH # 1.5 10*3/uL (1.3-4.4); LYMPH % 10.5 % (27.0-41.0); MEAN CELL VOLUME 90.1 fl (80.0-94.0); MEAN CORPUSCULAR HGB 30.4 pg (27.0-31.0); MEAN CORPUSCULAR HGB CONC 33.7 g/dl (33.0-37.0); MEAN PLATELET VOLUME 10.1 fl (9.6-12.3); MONO # 0.8 10*3/uL (0.1-1.0); MONO % 5.2 % (3.0-9.0); NEUT % 82.4 % (47.0-73.0); PLATELET COUNT AUTOMATED 300 10*3/uL (130-400); RED BLOOD COUNT 4.97 10*6/uL (4.50-5.90); RED CELL DISTRI WIDTH 12.3 % (0-14.5); WHITE BLOOD COUNT 14.5 10*3/uL (4.8-10.8)
[2023-07-09 16:41] LABS: BILIRUBIN Negative (Negative); BLOOD Negative (Negative); CLARITY Clear (Clear); COLOR Yellow (Yellow); GLUCOSE 3+ (Negative); KETONE 3+ (Negative); LEUKO ESTERASE Negative (Negative); NITRITE Negative (Negative); SPECIFIC GRAVITY 1.025 (1.001-1.030); UROBILINOGEN 0.2 E.U./dl (0.0-1.0)
[2023-07-09 16:46] LABS: ACT PARTIAL THROMBO TIME 26.3 SECONDS (20.0-32.1)
[2023-07-09 16:48] LABS: URINE AMPHETAMINES Negative (1000ng/ml); URINE BARBITURATES Negative (200ng/ml); URINE BENZODIAZEPINES Negative (200ng/ml); URINE CANNABINOIDS (THC) Positive (50ng/ml); URINE COCAINE Positive (300ng/ml); URINE METHADONE Negative (300ng/ml); URINE OPIATES Negative (300ng/ml); URINE PHENCYCLIDINE Negative (25ng/ml)
[2023-07-09 16:53] LABS: BACTERIA TRACE; EPITHELIAL CELLS 0-2; RBC 0-2 rbc/hpf (0-2)
[2023-07-09 17:00] LABS: ALKALINE PHOSPHATASE 159 U/L (46-116); BUN 18 mg/dl (9-23); CHLORIDE 78 mmol/L (98-107); LIPASE 28 U/L (12-53); POTASSIUM 4.9 mmol/L (3.4-5.1); SGPT/ALT 25 U/L (10-49); TOTAL PROTEIN 7.7 gm/dL (6.0-8.0)
[2023-07-09 17:50] VITALS: BP 143/65
[2023-07-09 18:00] VITALS: BP 134/74
[2023-07-09 19:07] LABS: BUN 22 mg/dl (9-23); CHLORIDE 84 mmol/L (98-107); POTASSIUM 5.3 mmol/L (3.4-5.1)
[2023-07-09 20:00] VITALS: BP 114/69
[2023-07-09 21:23] LABS: POTASSIUM 3.9 mmol/L (3.4-5.1)
[2023-07-10] VITALS: BP 107/78
[2023-07-10 01:25] LABS: BUN 21 mg/dl (9-23); CHLORIDE 104 mmol/L (98-107); POTASSIUM 3.3 mmol/L (3.4-5.1)
[2023-07-10 05:28] LABS: BUN 18 mg/dl (9-23); CHLORIDE 108 mmol/L (98-107); POTASSIUM 3.7 mmol/L (3.4-5.1)
[2023-07-10 06:19] LABS: HEMATOCRIT 39.4 % (42.0-52.0); MEAN CORPUSCULAR HGB 29.8 pg (27.0-31.0); MEAN CORPUSCULAR HGB CONC 34.8 g/dl (33.0-37.0); MEAN PLATELET VOLUME 9.3 fl (9.6-12.3); PLATELET COUNT AUTOMATED 241 10*3/uL (130-400); RED BLOOD COUNT 4.59 10*6/uL (4.50-5.90); RED CELL DISTRI WIDTH 12.3 % (0-14.5); WHITE BLOOD COUNT 15.9 10*3/uL (4.8-10.8)
[2023-07-10 06:21] LABS: MEAN CELL VOLUME 85.8 fl (80.0-94.0)
[2023-07-10 06:22] LABS: MANUAL DIFF REFLEX YES
[2023-07-10 06:43] LABS: PLATELET SUFFICIENCY NORMAL (NORMAL); TOTAL CELLS COUNTED 100 #CELLS
[2023-07-10 06:44] LABS: ACANTHOCYTES FEW; BURR CELLS FEW; OVALOCYTES FEW; SCHISTOCYTES FEW
[2023-07-10 08:00] VITALS: BP 117/76
[2023-07-10 10:38] LABS: BUN 17 mg/dl (9-23); CHLORIDE 103 mmol/L (98-107); POTASSIUM 4.6 mmol/L (3.4-5.1)
[2023-07-10 12:00] VITALS: BP 119/60
[2023-07-10 14:23] LABS: BUN 19 mg/dl (9-23); CHLORIDE 102 mmol/L (98-107); POTASSIUM 4.1 mmol/L (3.4-5.1)
[2023-07-10 16:00] VITALS: BP 119/67
[2023-07-10 18:00] LABS: BUN 16 mg/dl (9-23); CHLORIDE 100 mmol/L (98-107); POTASSIUM 4.2 mmol/L (3.4-5.1)
[2023-07-10 20:00] VITALS: BP 104/65
[2023-07-10 21:42] LABS: BUN 17 mg/dl (9-23); CHLORIDE 105 mmol/L (98-107); POTASSIUM 3.8 mmol/L (3.4-5.1)
[2023-07-11] VITALS: BP 96/59
[2023-07-11 02:28] LABS: BUN 14 mg/dl (9-23); CHLORIDE 106 mmol/L (98-107); POTASSIUM 3.4 mmol/L (3.4-5.1)
[2023-07-11 04:00] VITALS: BP 100/63
[2023-07-11 05:23] LABS: BUN 12 mg/dl (9-23); CHLORIDE 107 mmol/L (98-107); POTASSIUM 3.7 mmol/L (3.4-5.1)
[2023-07-11 06:11] LABS: BASO # 0.1 10*3/uL (0.0-0.1); BASO % 0.5 % (0.0-1.0); EOS # 0.3 10*3/uL (0.0-0.4); EOS % 2.7 % (1.0-4.0); HEMATOCRIT 37.2 % (42.0-52.0); LYMPH # 2.6 10*3/uL (1.3-4.4); LYMPH % 24.2 % (27.0-41.0); MEAN CELL VOLUME 85.7 fl (80.0-94.0); MEAN CORPUSCULAR HGB CONC 34.9 g/dl (33.0-37.0); MEAN PLATELET VOLUME 9.2 fl (9.6-12.3); MONO # 0.7 10*3/uL (0.1-1.0); MONO % 6.5 % (3.0-9.0); NEUT % 65.4 % (47.0-73.0); PLATELET COUNT AUTOMATED 219 10*3/uL (130-400); RED BLOOD COUNT 4.34 10*6/uL (4.50-5.90); RED CELL DISTRI WIDTH 12.6 % (0-14.5); WHITE BLOOD COUNT 10.7 10*3/uL (4.8-10.8)
[2023-07-11 08:00] VITALS: BP 117/76
[2023-07-11 12:00] VITALS: BP 130/82
[2023-07-11 14:52] LABS: URINE CREATININE RANDOM 50.84 mg/dL
[2023-07-11 16:00] VITALS: BP 121/76
[2023-07-11 20:00] VITALS: BP 128/60
[2023-07-12] VITALS: BP 131/71
[2023-07-12 06:16] LABS: ALKALINE PHOSPHATASE 84 U/L (46-116); BUN 10 mg/dl (9-23); CHLORIDE 107 mmol/L (98-107); POTASSIUM 3.1 mmol/L (3.4-5.1); SGPT/ALT 12 U/L (10-49); TOTAL PROTEIN 4.7 gm/dL (6.0-8.0)
[2023-07-12 06:36] LABS: BASO # 0.1 10*3/uL (0.0-0.1); BASO % 0.7 % (0.0-1.0); EOS # 0.4 10*3/uL (0.0-0.4); EOS % 4.7 % (1.0-4.0); HEMATOCRIT 34.9 % (42.0-52.0); LYMPH # 2.2 10*3/uL (1.3-4.4); LYMPH % 30.1 % (27.0-41.0); MEAN CELL VOLUME 85.3 fl (80.0-94.0); MEAN CORPUSCULAR HGB 30.6 pg (27.0-31.0); MEAN CORPUSCULAR HGB CONC 35.8 g/dl (33.0-37.0); MEAN PLATELET VOLUME 9.5 fl (9.6-12.3); MONO # 0.6 10*3/uL (0.1-1.0); MONO % 8.5 % (3.0-9.0); NEUT # 4.1 10*3/uL (2.3-7.9); NEUT % 55.5 % (47.0-73.0); PLATELET COUNT AUTOMATED 196 10*3/uL (130-400); RED BLOOD COUNT 4.09 10*6/uL (4.50-5.90); RED CELL DISTRI WIDTH 12.2 % (0-14.5); WHITE BLOOD COUNT 7.4 10*3/uL (4.8-10.8)
[2023-07-12 08:00] VITALS: BP 112/72
[2023-07-12 16:00] VITALS: BP 137/83
[2023-07-12 20:00] VITALS: BP 135/86
[2023-07-13] VITALS: BP 136/91
[2023-07-13 04:00] VITALS: BP 132/86
[2023-07-13 06:36] LABS: BASO % 0.8 % (0.0-1.0); EOS # 0.3 10*3/uL (0.0-0.4); EOS % 6.3 % (1.0-4.0); HEMATOCRIT 35.9 % (42.0-52.0); LYMPH # 1.9 10*3/uL (1.3-4.4); LYMPH % 37.7 % (27.0-41.0); MEAN CELL VOLUME 85.5 fl (80.0-94.0); MEAN CORPUSCULAR HGB CONC 35.1 g/dl (33.0-37.0); MEAN PLATELET VOLUME 9.2 fl (9.6-12.3); MONO # 0.4 10*3/uL (0.1-1.0); MONO % 8.7 % (3.0-9.0); NEUT # 2.3 10*3/uL (2.3-7.9); NEUT % 46.1 % (47.0-73.0); PLATELET COUNT AUTOMATED 170 10*3/uL (130-400); RED CELL DISTRI WIDTH 12.2 % (0-14.5)
[2023-07-13 07:24] LABS: ALKALINE PHOSPHATASE 90 U/L (46-116); BUN 8 mg/dl (9-23); CHLORIDE 104 mmol/L (98-107); POTASSIUM 3.8 mmol/L (3.4-5.1); SGPT/ALT 19 U/L (10-49); TOTAL PROTEIN 4.9 gm/dL (6.0-8.0)
[2023-07-13 08:00] VITALS: BP 136/85
[2023-07-13 12:00] VITALS: BP 127/81
[2023-07-13] MEDS ORDERED: OMEPRAZOLE MAGN20 MG PO (12:55)
== END 2023-07-13 13:34 | disposition home or self-care (01) | DRG 420 ==
LOC: ED 15:48 → ICCU 17:25 → EDHOLD 17:25 → ICCU 17:42
PROVIDERS: Emergency Medicine; ADMIT Internal Medicine; ATTEND Internal Medicine
PROC: 4A02XM4 Measurement of Cardiac Total Activity, External Approach (ICD-10-PCS; principal; 2023-07-12)
PROC: 3E073KZ Introduction of Other Diagnostic Substance into Coronary Artery, Percutaneous Approach (ICD-10-PCS; 2023-07-12)
DX: E10.10 Type 1 diabetes mellitus with ketoacidosis without coma (principal); N17.0 Acute kidney failure with tubular necrosis; E44.0 Moderate protein-calorie malnutrition; F12.90 Cannabis use, unspecified, uncomplicated; F14.10 Cocaine abuse, uncomplicated; I10 Essential (primary) hypertension; F17.210 Nicotine dependence, cigarettes, uncomplicated; E87.6 Hypokalemia; D64.9 Anemia, unspecified; T38.3X6A Underdosing of insulin and oral hypoglycemic [antidiabetic] drugs, initial encounter; E10.21 Type 1 diabetes mellitus with diabetic nephropathy; E55.9 Vitamin D deficiency, unspecified; K21.9 Gastro-esophageal reflux disease without esophagitis; Z71.6 Tobacco abuse counseling; Z91.148 Patient's other noncompliance with medication regimen for other reason; Z68.23 Body mass index [BMI] 23.0-23.9, adult

== ENCOUNTER 2023-08-14 22:28 | Emergency (ER) | payer MEDICAID ==
[~2023-08-14] VITALS: Ht 172.7 cm; Wt 78.0 kg
[~2023-08-14 22:28] MED LIST changes: +ADDERALL 30 MG30 MG PO; +GABAPENTIN600 MG PO; +INSULIN AS100 UNIT/4 SQ; +JARDIANCE25 MG PO; +LISINOPRIL20 MG PO; +OMEPRAZOLE MAGN20 MG PO; +ROSUVASTATIN CA10 MG PO
[2023-08-14 22:38] VITALS: BP 138/92
[2023-08-14 22:57] LABS: BASO % 0.5 % (0.0-1.0); EOS # 0.3 10*3/uL (0.0-0.4); EOS % 2.9 % (1.0-4.0); HEMATOCRIT 38.7 % (42.0-52.0); LYMPH # 2.4 10*3/uL (1.3-4.4); MEAN CELL VOLUME 87.6 fl (80.0-94.0); MEAN CORPUSCULAR HGB 29.6 pg (27.0-31.0); MEAN CORPUSCULAR HGB CONC 33.9 g/dl (33.0-37.0); MEAN PLATELET VOLUME 9.1 fl (9.6-12.3); MONO # 0.7 10*3/uL (0.1-1.0); MONO % 7.8 % (3.0-9.0); NEUT # 5.5 10*3/uL (2.3-7.9); NEUT % 61.3 % (47.0-73.0); PLATELET COUNT AUTOMATED 276 10*3/uL (130-400); RED BLOOD COUNT 4.42 10*6/uL (4.50-5.90); RED CELL DISTRI WIDTH 12.5 % (0-14.5); WHITE BLOOD COUNT 8.9 10*3/uL (4.8-10.8)
[2023-08-14 23:18] LABS: ALKALINE PHOSPHATASE 128 U/L (46-116); BUN 9 mg/dl (9-23); CHLORIDE 99 mmol/L (98-107); LIPASE 29 U/L (12-53); POTASSIUM 3.5 mmol/L (3.4-5.1); SGPT/ALT 17 U/L (5-49); TOTAL PROTEIN 5.8 gm/dL (6.0-8.0)
== END 2023-08-14 23:46 ==
LOC: ED 22:28
PROVIDERS: Internal Medicine
DX: E11.65 Type 2 diabetes mellitus with hyperglycemia (principal); Z79.4 Long term (current) use of insulin; I10 Essential (primary) hypertension; K21.9 Gastro-esophageal reflux disease without esophagitis; Z98.890 Other specified postprocedural states; F12.90 Cannabis use, unspecified, uncomplicated; F17.290 Nicotine dependence, other tobacco product, uncomplicated

== ENCOUNTER → 2023-11-29 | Outpatient (CLI) | payer MEDICAID ==
[~2023-11-29] MED LIST changes: +Technetium Tc 99M Sulfurcoll 1 KIT KIT SCH
== END | disposition home or self-care (01) ==
LOC: NM 11-22 08:00
PROVIDERS: ATTEND Internal Medicine
DX: K30 Functional dyspepsia (principal); R14.2 Eructation

== ENCOUNTER → 2024-05-08 | Outpatient (CLI) | payer MEDICAID ==
[~2024-05-08] MED LIST changes: -Technetium Tc 99M Sulfurcoll 1 KIT KIT SCH
== END | disposition home or self-care (01) ==
LOC: LAB 15:14
PROVIDERS: ATTEND Internal Medicine
DX: E10.65 Type 1 diabetes mellitus with hyperglycemia (principal)

== ENCOUNTER 2024-08-16 05:56 | Emergency (ER) | payer MEDICAID ==
[~2024-08-16] VITALS: Ht 175.2 cm; Wt 99.8 kg
[2024-08-16 06:04] VITALS: BP 138/77
[2024-08-16] MEDS ORDERED: Pantoprazole Sodium 20 MG TAB PO ONE ×3 (06:25→06:40)
[2024-08-16] MEDS ORDERED: Pantoprazole Sodium 40 MG TAB PO ONE (06:45)
== END 2024-08-16 06:53 | disposition home or self-care (01) ==
LOC: ED 05:56
DX: R05.9 Cough, unspecified (principal); K22.6 Gastro-esophageal laceration-hemorrhage syndrome; F17.200 Nicotine dependence, unspecified, uncomplicated; Z79.899 Other long term (current) drug therapy

== ENCOUNTER → 2024-09-04 | Outpatient (CLI) | payer MEDICAID | END | disposition home or self-care (01) | LOC: RAD 14:36 | PROVIDERS: ATTEND Internal Medicine | DX: M25.461 Effusion, right knee (principal); R60.0 Localized edema; M85.68 Other cyst of bone, other site ==